=== PATIENT | male | born 1970 | race Caucasian/White ===

== ENCOUNTER 2016-06-17 21:14 | Emergency (ER) | payer SELFPAY ==
[2016-06-17 21:20] VITALS: BP 152/84; PULSE 92; TEMP 98.7; BMI 22.9
[2016-06-18] MEDS ORDERED: IBUPROFEN 400 MG TABLET (FP) PO ONE ×2 (01:56→01:58)
--- NOTE | 2016-06-18 01:59 | PDOC ---
History of Present Illness - General Chief Complaint: Pain, Acute Stated Complaint: PAIN Time Seen by Provider: 06/17/16 23:19 History Source: Patient Exam Limitations: No Limitations - History of Present Illness Initial Comments: 06/18/16 01:53 46yo Male patient presents to ED c/o left shoulder pain atraumatic. 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 He denies CP, Abd pain, n /v/d, fever, cough, back pain, or any other complaints at this time. Occurred: reports: other (On going) Severity: reports: moderate Upper Extremity Pain Location: left: shoulder Method of Injury: denies: unknown, assault, burn, direct blow, fell, incised, motor vehicle accident, sports injury, twisted, other Modifying Factors: worse with: None, cold therapy, immobilization, pain medication, rest, other Extremity Pain Location - Extremity Pain Location Extremity Pain Locations: left: other Past History - Travel Traveled outside of the country in the last 30 days: No Close contact w/someone who was outside of country & ill: No - Past Medical History Allergies/Adverse Reactions: Allergies Allergy/AdvReac Type Severity Reaction Status Date / Time No Known Allergies Allergy Verified 06/17/16 21:18 Home Medications: Ambulatory Orders Ibuprofen [Motrin -] 600 mg PO Q6H PRN #20 tablet 06/18/16 Metaxalone [Skelaxin] 800 mg PO Q8H PRN #15 tablet 06/18/16 - Psycho/Social/Smoking Cessation Hx Suicidal Ideation: No Smoking History: Never smoked Review of Systems - Review of Systems Able to Perform ROS?: Yes Is the patient limited Serbian proficient: No Musculoskeletal: Yes: Joint Pain All Other Systems: Reviewed and Negative *Physical Exam - Vital Signs Last Vital Signs Temp Pulse Resp BP Pulse Ox 98.7 F 92 H 18 152/84 98 06/17/16 21:18 06/17/16 21:18 06/17/16 21:18 06/17/16 21:18 06/17/16 21:18 - Physical Exam General Appearance: Yes: Nourished, Appropriately Dressed, Mild Distress. No: Apparent Distress, Moderate Distress, Severe Distress Respiratory/Chest: positive: Lungs Clear, Normal Breath Sounds. negative: Respiratory Distress, Accessory Muscle Use, Labored Respiration, Rapid RR Cardiovascular: positive: Regular Rhythm, Regular Rate. negative: Edema, JVD, Murmur Gastrointestinal/Abdominal: positive: Normal Bowel Sounds, Soft Musculoskeletal: positive: Normal Inspection. negative: CVA Tenderness, Decreased Range of Motion, Vertebral Tenderness Extremity: positive: Normal Capillary Refill, Normal Inspection, Tender (Lt shoulder). negative: Normal Range of Motion (Lt shoulder.), Swelling, Erythema , Inflammation Integumentary: positive: Normal Color, Dry, Warm Neurologic: positive: event security officer II-XII NML intact, Fully Oriented, Alert, Normal Mood/ Affect, Normal Response, Motor Strength 07/15 ED Treatment Course - RADIOLOGY Radiology Studies Ordered: Category Date Time Status SHOULDER-LEFT [RAD] Stat Radiology 06/18/16 00:56 Taken *DC/Admit/Observation/Transfer Diagnosis at time of Disposition: Left shoulder pain Qualifiers: Chronicity: acute Qualified Code(s): M25.512 - Pain in left shoulder - Discharge Dispostion Disposition: HOME Condition at time of disposition: Stable Admit: No - Prescriptions Prescriptions: Ibuprofen [Motrin -] 600 mg PO Q6H PRN #20 tablet PRN Reason: Mild Pain Metaxalone [Skelaxin] 800 mg PO Q8H PRN #15 tablet PRN Reason: shoulder pain - Referrals Referrals: Liu Boo MD [Staff Physician] - Dangelo Mccollmu MD [Staff Physician] - - Patient Instructions Printed Discharge Instructions: DI for Shoulder Pain Additional Instructions: Seguimiento con el Dr. Mccollum para establecer el cuidado. Llame para programar rachel akil. Tamstephanie, [facility] con respecto al dolor del hombro. Llame para programar rachel akil con l ori. Aplique compresas fr as a la michele afectada cada 2-3 horas char 10-15 minutos de encendido y apagado segn sea necesario. [place] los medicamentos segn lo prescrito. No conduzca, dimitris alcohol ni opere maquinaria pesada mientras est tomando Skelaxin. Vuelva si cualquier preocupacin para la evaluacin adicional. Follow up with Dr. Mccollum to establish care. Call to schedule appointment. Also, follow up with Dr. Boo (orthopedic) regarding shoulder pain. Call to schedule appointment with him as well. Apply cold compress to affected area every 2-3 hours for 10-15 min on and off as needed. Take medications as prescribed. Do not drive, drink alcohol, or operate heavy machinery while taking Skelaxin. Return if any concerns for further evaluation. Print Language: DOMINICAN - Post Discharge Activity Work/School Note: Back to Work
== END 2016-06-18 02:13 | disposition home or self-care (01) ==
LOC: JER 21:14 → JERFT 21:14 → JER 06-18 02:13
DX: M25.512 Pain in left shoulder (principal); M70.812 Other soft tissue disorders related to use, overuse and pressure, left shoulder; Y93.89 Activity, other specified
CPT/HCPCS: 73030-TC-LT; 99283-25